=== PATIENT | female | born 1995 | race African-American/Black ===

== ENCOUNTER 2019-10-19 07:38 | Emergency (ER) | payer OTHER, SELFPAY ==
[2019-10-19 09:08] LABS: Bacteria/HPF 3+ HPF (None Seen); Bilirubin Negative (Negative); Blood, Urine 2+ (Negative); Clarity Turbid (Clear); Glucose, Urine (Dipstick) Normal (Negative); Leukocyte 500 Leu/uL (Negative); Nitrite Negative (Negative); Protein, Urine (Dipstick) 20 mg/dL (Neg-Trace); RBC/HPF Greater than 50 HPF (0-3); Urobilinogen Normal mg/dL (Less than 2); WBC/HPF Greater than 50 HPF (0-3)
[2019-10-19 09:12] LABS: Pregnancy Test - Urine (BHCG) POSITIVE (Negative); Pregu Control Background? CLEAR/WHITE (CLR/WHITE); Pregu Control Bar Appear? YES (CONTROL BAR); Specific Gravity 1.025 (1.002-1.036)
== END 2019-10-19 10:00 | disposition home or self-care (01) ==
LOC: ERS 07:38
DX: O23.41 Unspecified infection of urinary tract in pregnancy, first trimester (principal); Z3A.01 Less than 8 weeks gestation of pregnancy
CPT/HCPCS: 81003; 81015; 81025; 99283

== ENCOUNTER 2021-02-03 16:16 | Emergency (ER) | payer OTHER | END 2021-02-03 17:33 | disposition home or self-care (01) | LOC: ERS 16:16 | DX: M54.5 Low back pain (principal) | CPT/HCPCS: 99283 ==

== ENCOUNTER 2024-04-02 21:20 | Emergency (ER) | payer OTHER | END 2024-04-02 23:34 | disposition home or self-care (01) | LOC: ERS 21:20 | DX: L02.213 Cutaneous abscess of chest wall (principal) | CPT/HCPCS: 10060 ==

== ENCOUNTER 2024-11-13 01:07 | Emergency (ER) | payer SELFPAY ==
[2024-11-13 03:03] LABS: Bacteria/HPF None Seen HPF (None Seen); Bilirubin Negative (Negative); Blood, Urine Negative (Negative); CAUTI Indications for Culture Dysuria,urgency,freq; Clarity Turbid (Clear); Glucose, Urine (Dipstick) Normal (Negative); Ketone, Urine Negative (Negative); Leukocyte 500 Leu/uL (Negative); Nitrite Negative (Negative); Protein, Urine (Dipstick) 20 mg/dL (Neg-Trace); RBC/HPF 0-3 HPF (0-3); Specific Gravity, Urine 1.032 (1.002-1.036); Urobilinogen Normal mg/dL (Less than 2); pH, Urine 5.5 (5.0-9.0)
[2024-11-13 03:08] LABS: Urine Culture Reflex No No
[2024-11-13 03:13] LABS: Pregnancy Test - Urine (BHCG) Negative (Negative); Pregu Control Background? CLEAR/WHITE (CLR/WHITE); Pregu Control Bar Appear? YES (CONTROL BAR); Specific Gravity 1.032 (1.002-1.036)
[2024-11-13] MEDS ORDERED: cefTRIAXone (ROCEPHIN) 1 GM VIAL ONE (03:45)
[2024-11-13] MEDS ORDERED: Lidocaine 1% MPF 2 ML VIAL ONE (03:45)
[2024-11-13 09:57] LABS: Chlamydia by PCR, Vaginal Swab DETECTED (NotDetected); GC by PCR, Vaginal Swab Not Detected (NotDetected)
== END 2024-11-13 04:10 | disposition home or self-care (01) ==
LOC: ERS 01:07
DX: N89.8 Other specified noninflammatory disorders of vagina (principal); R10.30 Lower abdominal pain, unspecified
CPT/HCPCS: 81001; 81025; 87086; 87480; 87491; 87510; 87591; 87660; 96372; 99284; J0696

== ENCOUNTER 2024-12-28 06:35 | Emergency (ER) | payer SELFPAY ==
[2024-12-28] MEDS ORDERED: Lidocaine 1% PF 5 ML VIAL ONE (06:56)
[2024-12-28] MEDS ORDERED: Bacitracin 1 PK ONE (07:37)
== END 2024-12-28 07:52 | disposition home or self-care (01) ==
LOC: ERS 06:35
DX: L03.012 Cellulitis of left finger (principal)
CPT/HCPCS: 10060